=== PATIENT | male | born 1990 | race Caucasian/White ===

== ENCOUNTER 2018-09-02 07:50 | Emergency (ER) | payer SELFPAY ==
[2018-09-02] MEDS ORDERED: Ibuprofen 800 MG TAB ONE (08:19)
--- NOTE | 2018-09-02 08:31 | RAD ---
EXAM: 2 views of the left tibia/fibula HISTORY: Foreign body embedded in the distal leg while chopping wood yesterday COMPARISON: None FINDINGS: There is no evidence of acute fracture or dislocation. No soft tissue swelling is seen. No degenerative changes are seen in the wrist or elbow. A metallic radiopaque foreign body is seen in the anterior aspect of the lower leg near the tibia. IMPRESSION: Radiopaque foreign body within the leg as above.
[2018-09-02] MEDS ORDERED: Bacitracin Zinc 1 Packet ONE (09:04)
== END 2018-09-02 09:17 | disposition home or self-care (01) ==
LOC: SCSER 07:50
DX: S81.802A Unspecified open wound, left lower leg, initial encounter (principal); S80.852A Superficial foreign body, left lower leg, initial encounter; F41.9 Anxiety disorder, unspecified; F41.0 Panic disorder [episodic paroxysmal anxiety]; F17.210 Nicotine dependence, cigarettes, uncomplicated; W45.8XXA Other foreign body or object entering through skin, initial encounter

== ENCOUNTER 2018-09-04 10:02 | Emergency (ER) | payer SELFPAY ==
[2018-09-04] MEDS ORDERED: Adacel (T-DAP) 0.5 ML SYRINGE ONE ×2 (10:50→11:13)
--- NOTE | 2018-09-04 11:05 | RAD ---
LEFT LEG 2 VIEWS: HISTORY: Evaluate for foreign body in the fuchs, right leg pain and redness. FINDINGS/IMPRESSION: There is a radiopaque metallic density/foreign body in the anterior aspect of the left distal leg lat eral to the midline. The left tibia and fibula are otherwise intact. No significant interval change is seen since the exam of 09/02/2018. POS: JOSE
[2018-09-04] MEDS ORDERED: Ondansetron ODT 4 MG TAB ONE (11:34)
[2018-09-04] MEDS ORDERED: Ibuprofen 800 MG TAB ONE (11:50)
== END 2018-09-04 11:53 | disposition home or self-care (01) ==
LOC: ERS 10:02
DX: S81.822A Laceration with foreign body, left lower leg, initial encounter (principal); F41.0 Panic disorder [episodic paroxysmal anxiety]; F17.210 Nicotine dependence, cigarettes, uncomplicated; Z71.6 Tobacco abuse counseling; W45.8XXA Other foreign body or object entering through skin, initial encounter
CPT/HCPCS: 90471; 90715; 99406; Q0162

== ENCOUNTER 2019-11-02 19:27 | Emergency (ER) | payer SELFPAY ==
[2019-11-02 20:55] LABS: #Eosinphils 0.3 thou/uL (0.0-0.7); #Monocytes 0.6 thou/uL (0.11-0.59); #Neutrophils 3.4 thou/uL (1.40-6.50); %Basophils 0.5 % (0.0-1.0); %Eosinophils 3.9 % (0.0-10.0); %Monocytes 7.8 % (0.0-10.0); %Neutrophils 46.8 % (42.0-75.0); Hemoglobin 15.2 g/dL (14.0-18.0); Mean Corpuscular HGB CONC 35.1 g/dL (32.0-36.0); Mean Corpuscular Hemoglobin 32.4 pg (27.0-31.0); Mean Corpuscular Volume 92.4 fL (78.0-98.0); Mean Platelet Volume 7.1 fL (7.4-10.4); Platelet Count 229 thou/uL (130-400); RBC Distribution Width 11.1 % (11.5-14.5); Red Blood Cell (RBC) Count 4.68 mill/uL (4.70-6.10); White Blood Cell (WBC) Count 7.2 thou/uL (4.8-10.8)
[2019-11-02 21:16] LABS: ALT (SGPT) 19 U/L (8-55); AST (SGOT) 19 U/L (5-34); Albumin 4.4 g/dL (3.5-5.0); Alkaline Phosphatase 72 U/L (40-110); Anion Gap 14 mmol/L (10-20); BUN (Urea Nitrogen) 18 mg/dL (8.9-20.6); Bilirubin, Total 0.4 mg/dL (0.2-1.2); Calc. Creatinine Clearance 0 mL/min (70-130); Carbon Dioxide 22 mmol/L (22-29); Chloride 107 mmol/L (98-107); Estimated GFR-MDRD 74; Globulin 2.6 g/dL (2.4-3.5); Glucose 104 mg/dL (70-105); Potassium 3.6 mmol/L (3.5-5.1); Sodium 139 mmol/L (136-145)
== END 2019-11-02 22:10 | disposition home or self-care (01) ==
LOC: ERS 19:27
DX: K62.5 Hemorrhage of anus and rectum (principal); F41.0 Panic disorder [episodic paroxysmal anxiety]; F17.210 Nicotine dependence, cigarettes, uncomplicated
CPT/HCPCS: 36415; 80053; 82274; 85025; 99283

== ENCOUNTER 2020-08-27 21:34 | Emergency (ER) | payer SELFPAY ==
[2020-08-28] MEDS ORDERED: Proparacaine 0.5% Opth 15 ML BOT ONE (00:50)
[2020-08-28] MEDS ORDERED: Fluorescein Opthalmic Strip ONE (00:52)
== END 2020-08-28 01:18 | disposition home or self-care (01) ==
LOC: ERS 21:34
DX: B30.9 Viral conjunctivitis, unspecified (principal); F17.210 Nicotine dependence, cigarettes, uncomplicated
CPT/HCPCS: 99283